=== PATIENT | male | born 1945 | race Caucasian/White ===

== ENCOUNTER 2020-10-20 06:50 | Outpatient (CLI) | payer MEDICARE | END 2020-10-20 23:59 | disposition home or self-care (01) | LOC: LAB 06:50 | PROVIDERS: ATTEND Ophthalmology | DX: Z01.812 Encounter for preprocedural laboratory examination (principal); H26.9 Unspecified cataract; Z20.822 Contact with and (suspected) exposure to COVID-19 ==

== ENCOUNTER → 2020-10-22 | Day surgery (SDC) | payer MEDICARE ==
[~2020-10-22] MED LIST: ACETAzolamide 250 MG TABLET PO ONE; ACETYLCHOLINE CHLORIDE 1% OPHT 1 EA KIT ONE; BALANCED SALT IRRIG SOLN COMB1 500 ML ONE; BALANCED SALT IRRIG SOLN COMB1 500 ML, EPINEPHRINE-PF 1:1000 0.5 MG IO ONE; BALANCED SALT IRRIG SOLN COMB2 15 ML IRRIG.SOLN ONE; BUPIVACAINE PF 0.5% 30 ML VIAL ONE; CIPROFLOXACIN 0.3% OPHT DROP 2.5 ML BOTTLE ONE; CYCLOPENTOLATE 1% OPHT DROP 2 ML BOTTLE ONE; FENTANYL CITRATE 100 MCG/2 ML AMPUL ONE; HYALURONATE SODIUM 12.8 MG/0.8 ML DISP.SYRIN ONE; HYALURONIDASE,OVINE 200 UNITS/ML VIAL ONE; KETOROLAC 0.5% OPHT DROP 3 ML BOTTLE ONE; LIDOCAINE-MPF 2% 5 ML VIAL ONE; MOXIFLOXACIN HCL 3 ML OPHT DROPS ONE; NEO/POLYMYX B/DEXAME OPHT OINT 3.5 GM TUBE ONE; PHENYLEPHRINE 2.5% OPHT DROP 2 ML BOTTLE ONE; TIMOLOL MALEATE 0.5% OPHT DROP 5 ML BOTTLE ONE; TROPICAMIDE 1% OPHT DROP 3 ML BOTTLE ONE
[2020-10-22 06:52] LABS: HEMATOCRIT 42.4 % (36.7-47.1); MEAN CORPUSCULAR HEMOGLOBIN 33.8 uug (23.8-33.4); MEAN CORPUSCULAR VOLUME 98.2 fL (73.0-96.2); PLATELET COUNT (AUTO) 154 K/uL (152-348)
== END | disposition home or self-care (01) ==
LOC: DS 06:11
PROVIDERS: ATTEND Ophthalmology
DX: H25.89 Other age-related cataract (principal); I10 Essential (primary) hypertension; M19.90 Unspecified osteoarthritis, unspecified site; F41.9 Anxiety disorder, unspecified; Z79.899 Other long term (current) drug therapy; Z98.890 Other specified postprocedural states
CPT/HCPCS: 36415; 66984; 71045; 85025; J0171; J3010; J3471; J3490 ×2; J7120; J7321; V2632; A4663; J8499